=== PATIENT | female | born 1940 | race Caucasian/White ===

== ENCOUNTER 2018-02-06 15:32 | Emergency (ER) | payer MEDICARE, BC ==
[~2018-02-06] VITALS: Ht 154.9 cm; Wt 37.7 kg
[2018-02-06 15:34] VITALS: TEMP 97.8
[2018-02-06 17:15] VITALS: BP 130/86; PULSE 92
== END 2018-02-06 17:17 | disposition home or self-care (01) ==
LOC: COL.ER 15:32
DX: S49.91XA Unspecified injury of right shoulder and upper arm, initial encounter (principal); S33.6XXA Sprain of sacroiliac joint, initial encounter; W08.XXXA Fall from other furniture, initial encounter; Y92.511 Restaurant or cafe as the place of occurrence of the external cause
CPT/HCPCS: J1885